=== PATIENT | female | born 1985 | race Caucasian/White ===

== ENCOUNTER 2017-04-25 18:39 | Emergency (ER) | payer MEDICAID ==
[~2017-04-25] VITALS: Ht 177.8 cm; Wt 95.7 kg
[2017-04-25 19:00] VITALS: BP 121/51
[2017-04-25] MEDS ORDERED: PENICILLIN V K 250 MG TABLET. PO ONE (19:45)
[2017-04-25] MEDS ORDERED: PENI500T PO (19:51)
--- NOTE | 2017-04-25 19:51 | PHYS DOC ---
Past History Past Medical History: No Pertinent History Alcohol Use: None Drug Use: None Adult General Chief Complaint Chief Complaint: FLU SYMPTOM HPI HPI 31-year-old female complaining of sore throat. Patient think she has strep. She' s had strep in the past and this feels similar. It hurts to swallow and there are white plaques in the back of her throat that she was able see in the mirror. No headache or stiff neck. No fevers chills sweats or shaking chills. No other complaints Review of Systems Review of Systems Constitutional: Denies fever or chills [] Eyes: Denies change in visual acuity, redness, or eye pain [] HENT: Denies nasal congestion or sore throat [] Respiratory: Denies cough or shortness of breath [] Cardiovascular: No additional information not addressed in HPI [] GI: Denies abdominal pain, nausea, vomiting, bloody stools or diarrhea [] : Denies dysuria or hematuria [] Musculoskeletal: Denies back pain or joint pain [] Integument: Denies rash or skin lesions [] Neurologic: Denies headache, focal weakness or sensory changes [] Endocrine: Denies polyuria or polydipsia [] All other systems were reviewed and found to be within normal limits, except as documented in this note. Current Medications Current Medications Current Medications Medications (Trade) Dose Ordered Sig/Daniel Start Time Stop Time Status Last Admin Dose Admin Penicillin V Potassium (Veetid) 500 mg 1X ONCE 04/25/17 19:45 04/25/17 19:46 UNV Allergies Allergies Allergies Coded Allergies Type Severity Reaction Last Updated Verified No Known Drug Allergies 04/25/17 No Physical Exam Physical Exam Constitutional: Well developed, well nourished, no acute distress, non-toxic appearance. [] HENT: Normocephalic, atraumatic, bilateral external ears normal, oropharynx moist, bilateral tonsillar exudates white with no asymmetry. Midline uvula. Normal voice without dysphonia. No stridor., nose normal. [] Eyes: PERRLA, EOMI, conjunctiva normal, no discharge. [] Neck: Normal range of motion, no tenderness, supple, no stridor. [] Cardiovascular:Heart rate regular rhythm, no murmur [] Lungs & Thorax: Bilateral breath sounds clear to auscultation [] Abdomen: Bowel sounds normal, soft, no tenderness, no masses, no pulsatile masses. [] Skin: Warm, dry, no erythema, no rash. [] Back: No tenderness, no CVA tenderness. [] Extremities: No tenderness, no cyanosis, no clubbing, ROM intact, no edema. [] Neurologic: Alert and oriented X 3, normal motor function, normal sensory function, no focal deficits noted. [] Psychologic: Affect normal, judgement normal, mood normal. [] Current Patient Data Vital Signs Vital Signs Date Time Temp Pulse Resp B/P (MAP) Pulse Ox O2 Delivery O2 Flow Rate FiO2 04/25/17 19:00 100.4 95 20 95 04/25/17 19:00 121/51 (74) Room Air EKG EKG [] Radiology/Procedures Radiology/Procedures [] Course & Med Decision Making Course & Med Decision Making Pertinent Labs and Imaging studies reviewed. (See chart for details) Signs and symptoms consistent with strep and otherwise well-appearing patient. Dose of Pen-Vee K given in ED and prescription will be dispensed. Patient were to take ibuprofen and Tylenol rest and drink plenty of fluids. She is requesting coverage for yeast infection which she typically gets when she is on penicillin. Patient agrees with outpatient follow-up and strict return precautions given [] Dragon Disclaimer Dragon Disclaimer This electronic medical record was generated, in whole or in part, using a voice recognition dictation system. Departure Departure: Impression: Primary Impression: Strep throat Disposition: HOME, SELF-CARE Condition: STABLE Referrals: PCP,NO (PCP) Patient Instructions: Strep Throat Additional Instructions: You have a strep throat. Rest and drink plenty of fluids. Finish penicillin as prescribed. Take ibuprofen every 6 hours and Tylenol every 4 hours as needed for fever or discomfort. Follow-up with your doctor in 2 days and return immediately for new severe worsening symptoms, specifically return for increasing difficulty swallowing, inability to tolerate swallowing secretions, voice changes in the setting of fevers and worsening pain Scripts Penicillin V Potassium (PENICILLIN V POTASSIUM) 500 Mg Tablet 1 TAB PO QID, #40 TAB Prov: VALARIE DESHPANDE MD 04/25/17 VALARIE DESHPANDE MD Apr 25, 2017 19:51
== END 2017-04-25 20:10 | disposition home or self-care (01) ==
LOC: ER 18:39
DX: J02.0 Streptococcal pharyngitis (principal)
CPT/HCPCS: 87880; 99283

== ENCOUNTER 2017-04-28 16:50 | Emergency (ER) | payer MEDICAID ==
[~2017-04-28] VITALS: Ht 177.8 cm; Wt 95.7 kg
[~2017-04-28 16:50] MED LIST: PENI500T PO
[2017-04-28] MEDS ORDERED: IV NORMAL SALINE 1,000ML 1,000 ML IV ONE (18:30)
[2017-04-28] MEDS ORDERED: CONTRAST GIVEN MC PRN (18:30)
[2017-04-28] MEDS ORDERED: IOHEXOL 300 MG/ML 75 ML VIAL. IV ONE (18:45)
[2017-04-28] MEDS ORDERED: methylPREDNISolone SOD SUCC PF 125 MG/2 ML VIAL. IV ONE (18:45)
[2017-04-28] MEDS ORDERED: KETOROLAC 30 MG/ML VIAL. IV ONE (18:45)
[2017-04-28] MEDS ORDERED: CLINDAMYCIN 900MG PREMIX 50 ML IV ONE (18:45)
--- NOTE | 2017-04-28 18:47 | PHYS DOC ---
Past History Past Medical History: No Pertinent History Past Surgical History: No Surgical History Alcohol Use: None Drug Use: None Adult General Chief Complaint Chief Complaint: SORE THROAT HPI HPI 31-year-old female patient states she was seen in this emergency room 4 days ago and diagnosed with strep throats with negative flu test. Patient states she is taking penicillin orally the last 4 days without improvement of her condition and today she had increasing of her pain with radiation of the sore throat with her jaw and ear and neck. Patient rated her pain 10 over 10 and complaining of nausea and fever and mild cough without vomiting, diarrhea, , abdominal pain, focal neuro deficit. Review of Systems Review of Systems Constitutional: Reports fever and chills Eyes: Denies change in visual acuity, redness, or eye pain [] HENT: Denies nasal congestion, reports sore throat Respiratory: Reports cough, denies shortness of breath [] Cardiovascular: No additional information not addressed in HPI [] GI: Denies abdominal pain, vomiting, bloody stools or diarrhea, reports nausea [ ] : Denies dysuria or hematuria [] Musculoskeletal: Denies back pain or joint pain [] Integument: Denies rash or skin lesions [] Neurologic: Denies headache, focal weakness or sensory changes [] Endocrine: Denies polyuria or polydipsia [] All other systems were reviewed and found to be within normal limits, except as documented in this note. Current Medications Current Medications Current Medications Medications (Trade) Dose Ordered Sig/Daniel Start Time Stop Time Status Last Admin Dose Admin Clindamycin Phosphate 50 ml @ 100 mls/hr 1X ONCE 04/28/17 18:45 04/28/17 19:14 Info (Do NOT chart on this entry -- for MONITORING) 1 each PRN DAILY PRN 04/28/17 18:30 04/30/17 18:29 Iohexol (Omnipaque 300 Mg/ml) 75 ml 1X ONCE 04/28/17 18:45 04/28/17 18:46 Ketorolac Tromethamine (Toradol) 30 mg 1X ONCE 04/28/17 18:45 04/28/17 18:46 Methylprednisolone Sodium Succinate (SOLU-Medrol 125MG VIAL) 125 mg 1X ONCE 04/28/17 18:45 04/28/17 18:46 Sodium Chloride 1,000 ml @ 1,000 mls/hr 1X ONCE 04/28/17 18:30 04/28/17 19:29 Allergies Allergies Allergies Coded Allergies Type Severity Reaction Last Updated Verified No Known Drug Allergies 04/25/17 No Physical Exam Physical Exam Constitutional: Well developed, well nourished, moderate distress, non-toxic appearance, anxious. [] HENT: Normocephalic, atraumatic, bilateral external ears normal, oropharynx moist, bilateral tonsillar edema and erythema with exudates, nose normal. [] Eyes: PERRLA, EOMI, conjunctiva normal, no discharge. [] Neck: Normal range of motion, no tenderness, supple, no stridor. [] Cardiovascular:Heart rate regular rhythm, no murmur [] Lungs & Thorax: Bilateral breath sounds clear to auscultation [] Abdomen: Bowel sounds normal, soft, no tenderness, no masses, no pulsatile masses. [] Skin: Warm, dry, no erythema, no rash. [] Back: No tenderness, no CVA tenderness. [] Extremities: No tenderness, no cyanosis, no clubbing, ROM intact, no edema. [] Neurologic: Alert and oriented X 3, normal motor function, normal sensory function, no focal deficits noted. [] Psychologic: Anxious, judgement normal, mood normal. [] Current Patient Data Vital Signs Vital Signs Date Time Temp Pulse Resp B/P (MAP) Pulse Ox O2 Delivery O2 Flow Rate FiO2 04/28/17 16:58 98.7 97 18 97 Room Air EKG EKG [] Radiology/Procedures Radiology/Procedures [] [place] [address] IMAGING REPORT Signed PATIENT: REID PAVON ACCOUNT: [id number] : 1985 LOCATION: ER AGE: 31 SEX: F EXAM STATUS: PRE ER ORD. PHYSICIAN: DIDIER SHARIF MD REASON: sore thoat , possible abscess PROCEDURE: CT SOFT TISSUE NECK W/CONTRAST CT neck with contrast History: Sore throat getting worse with pain radiating into the jaw and pain talking Axial helical images of the neck were obtained after the administration of 75 cc IV Omni 300 contrast. Axial coronal and sagittal reconstruction was performed for a CT soft tissues neck with contrast. Findings: There is mild fullness of the tonsils. There are numerous mildly enlarged lymph nodes in the neck bilaterally. There is lucency around the 2 molars in the right mandible. The fat soft tissue planes of the neck are preserved. There is no mass or lymphadenopathy. There is no prevertebral soft tissue swelling. The thyroid appears normal. Mild reversal of the normal cervical lordosis is seen. Impression: 1. Mild reversal of the normal cervical lordosis could be positional or could be secondary to muscle spasm. 2. Mild lymphadenopathy likely reactive. Fullness the tonsils is likely mild tonsillitis. There is no abscess. 3. Possible periodontal abscesses around the roots of the 2 molars in the right mandible. PQRS Compliance Statement: One or more of the following individualized dose reduction techniques were utilized for this examination: 1. Automated exposure control 2. Adjustment of the mA and/or kV according to patient size 3. Use of iterative reconstruction technique Electronically signed by: Herminio Ashley III, MD (04/28/2017 6:59 PM) [facility] DICTATED AND SIGNED BY: HERMINIO ASHLEY III, MD DATE: 04/28/17 1849 CC: DIDIER SHARIF MD; PCP,NO ~ Course & Med Decision Making Course & Med Decision Making Pertinent Labs and Imaging studies reviewed. (See chart for details) Evaluation of patient in ER showed 31-year-old female patient who diagnosed with strep pharyngitis and didn't feel better with 4 days of antibiotic. Patient was afebrile and very anxious in ER. Patient had pretty large tonsils with pus bilaterally CT of soft tissue neck was negative for abscess. Labs was unremarkable. Patient treated with IV fluids, Toradol, Solu-Medrol and clindamycin and felt better. Plan discharge patient home with adding clindamycin and hydrocodone to current antibiotic. I've spoken with the patient and/or caregivers. I've explained the patient's condition, diagnosis and treatment plan based on information available to me at this time. I've answered the patient's and/or caregivers questions and addressed any concerns. The patient and/or caregivers have a good understanding the patient's diagnosis, condition and treatment plan as can be expected at this point. Vital signs have been stabilized. The patient's condition is stable for discharge from the emergency department. The patient will pursue further outpatient evaluation with her primary care provider or other designated consulting physician as outlined in the discharge instructions. Patient and/or caregivers are agreeable to this plan of care and follow-up instructions have been explained in detail. The patient and/or caregivers have received these instructions in written format and expressed understanding of these discharge instructions. The patient and her caregivers are aware that if any significant change in condition or worsening of symptoms should prompt him to immediately return to this of the closest emergency department. If an emergent department is not readily available I would encourage him to call 911.] Dragon Disclaimer Dragon Disclaimer This electronic medical record was generated, in whole or in part, using a voice recognition dictation system. Departure Departure: Impression: Primary Impression: Acute streptococcal pharyngitis Additional Impressions: Tobacco abuse Tobacco abuse counseling Disposition: HOME, SELF-CARE (At 2001) Condition: IMPROVED Referrals: [facility] (PCP) Patient Instructions: Smoking Cessation, Strep Throat Additional Instructions: Drink plenty of liquids Follow-up with your primary care physician in 3-5 days Return to ER if not getting better Continue home antibiotic Scripts Ibuprofen (IBUPROFEN) 800 Mg Tablet 1 TAB PO TID, #30 TAB Prov: DIDIER SHARIF MD 04/28/17 Hydrocodone Bit/Acetaminophen (NORCO 5-325 TABLET) 1 Each Tablet 1 TAB PO PRN Q6HRS Y for PAIN, #10 TAB 0 Refills Prov: DIDIER SHARIF MD 04/28/17 Clindamycin Hcl (CLINDAMYCIN HCL) 300 Mg Capsule 1 CAP PO TID, #21 CAP Prov: DIDIER SHARIF MD 04/28/17 Problem Qualifiers DIDIER SHARIF MD Apr 28, 2017 18:47
[2017-04-28 19:00] LABS: BASO % 0 % (0-3); EOS # 0.2 x10^3/uL (0.0-0.7); EOS % 2 % (0-3); HEMATOCRIT 42.4 % (36.0-47.0); HEMOGLOBIN 14.5 g/dL (12.0-15.5); LYMPH % 22 % (24-48); MEAN CORPUSCULAR HEMOGLOBIN 34 pg (25-35); MEAN CORPUSCULAR HGB CONC 34 g/dL (31-37); MEAN CORPUSCULAR VOLUME 98 fL (79-100); MONO # 0.8 x10^3/uL (0.0-1.1); MONO % 9 % (0-9); NEUT # 6.3 x10^3uL (1.8-7.7); NEUT % 68 % (31-73); PLATELET COUNT 334 x10^3/uL (140-400); RED BLOOD COUNT 4.34 x10^6/uL (3.50-5.40); RED CELL DISTRIBUTION WIDTH 12.4 % (11.5-14.5); WHITE BLOOD COUNT 9.3 x10^3/uL (4.0-11.0)
--- NOTE | 2017-04-28 19:02 | RAD ---
CT neck with contrast History: Sore throat getting worse with pain radiating into the jaw and pain talking Axial helical images of the neck were obtained after the administration of 75 cc IV Omni 300 contrast. Axial coronal and sagittal reconstruction was performed for a CT soft tissues neck with contrast. Findings: There is mild fullness of the tonsils. There are numerous mildly enlarged lymph nodes in the neck bilaterally. There is lucency around the 2 molars in the right mandible. The fat soft tissue planes of the neck are preserved. There is no mass or lymphadenopathy. There is no prevertebral soft tissue swelling. The thyroid appears normal. Mild reversal of the normal cervical lordosis is seen. Impression: 1. Mild reversal of the normal cervical lordosis could be positional or could be secondary to muscle spasm. 2. Mild lymphadenopathy likely reactive. Fullness the tonsils is likely mild tonsillitis. There is no abscess. 3. Possible periodontal abscesses around the roots of the 2 molars in the right mandible. PQRS Compliance Statement: One or more of the following individualized dose reduction techniques were utilized for this examination: 1. Automated exposure control 2. Adjustment of the mA and/or kV according to patient size 3. Use of iterative reconstruction technique Electronically signed by: Spencer Padron III, MD (04/28/2017 6:59 PM) [facility]
[2017-04-28 19:14] LABS: ALBUMIN 3.8 g/dL (3.4-5.0); ALBUMIN/GLOBULIN RATIO 0.8 (1.0-1.7); CALCIUM 9.5 mg/dL (8.5-10.1); CREATININE 0.5 mg/dL (0.6-1.0); POTASSIUM 4.7 mmol/L (3.5-5.1); TOTAL BILIRUBIN 0.4 mg/dL (0.2-1.0); TOTAL PROTEIN 8.8 g/dL (6.4-8.2)
[2017-04-28 19:15] LABS: MONONUCLEOSIS PATIENT NEGATIVE (NEGATIVE)
[2017-04-28 19:50] LABS: INFLUENZA A PATIENT NEGATIVE (NEGATIVE); INFLUENZA B PATIENT NEGATIVE (NEGATIVE)
[2017-04-28] MEDS ORDERED: HYDR-971 PO (20:05)
[2017-04-28] MEDS ORDERED: CLIN300C8 PO (20:05)
[2017-04-28] MEDS ORDERED: IBUP800T19 PO (20:05)
[2017-04-28 20:15] VITALS: BP 119/58
== END 2017-04-28 20:15 | disposition home or self-care (01) ==
LOC: ER 16:50
DX: J02.0 Streptococcal pharyngitis (principal); Z72.0 Tobacco use; Z71.6 Tobacco abuse counseling
CPT/HCPCS: 36415; 70491; 80053; 85025; 86308; 87804; 96365; 96375; 99285; J1885; J2930; J3490; Q9967; J7030